=== PATIENT | male | born 1940 | race Hispanic/Latino ===

== ENCOUNTER 2020-09-29 00:49 | Emergency (ER) | payer MEDICARE ==
[~2020-09-29] VITALS: Ht 172.7 cm; Wt 86.2 kg
[2020-09-29] MEDS ORDERED: IBUPROFEN 600 MG TAB PO STA (00:52)
[2020-09-29] MEDS ORDERED: CEFTRIAXONE SOD 1 GM/NS 50 ML 50 ML IV ONE (01:00)
[2020-09-29 01:13] LABS: BASOPHILS % 0.2 % (0.0-1.0); HEMATOCRIT 34.4 % (38.2-49.6); LYMPHOCYTES # (AUTO) 0.8 (1.0-3.2); LYMPHOCYTES % 8.8 % (18.0-39.1); MEAN CORPUSCULAR HEMOGLOBIN 32.3 pg (28-32); MEAN CORPUSCULAR HGB CONC 34.9 g/dL (31-35); MEAN CORPUSCULAR VOLUME 92.7 fL (81-99); MONOCYTES # (AUTO) 0.3 (0.2-0.8); MONOCYTES % 3.7 % (4.4-11.3); NEUTROPHILS # (AUTO) 7.4 (2.1-6.9); NEUTROPHILS % 86.9 % (38.7-80.0); PLATELET COUNT 164 x10e3/uL (140-360); RED BLOOD COUNT 3.71 x10e6/uL (4.3-5.7); RED CELL DISTRIBUTION WIDTH 12.7 % (11.7-14.4)
--- NOTE | 2020-09-29 01:15 | Emergency Department Note ---
History of Present Illnes History of Present Illness Chief Complaint: COVID PUI History of Present Illness This is a 79 year old male c/o fever, chills and body aches that have gradually been getting worse over the last 4 days; Pt states that tested positive for covid on 09/16/20; O2 sat 97% on RA . Historian: Patient Arrival Mode: [employer] Required: No Onset (how long ago): day(s) (4) Location: all over Quality: fever, chills,body aches, cough Radiation: Reports non-radiation Severity: moderate Onset quality: sudden Duration (how long): day(s) (4) Timing of current episode: intermittent Progression: waxing and waning Chronicity: new Context: Reports recent illness (tested positive for covid 19 on 09/16/20) Relieving factors: none Exacerbating factors: none Associated symptoms: Reports cough, Reports fever/chills Past Medical/Family History Physician Review I have reviewed the patient's past medical and family history. Any updates have been documented here. Past Medical History Recent Fever: Yes Clinical Suspicion of Infectio: Yes New/Unexplained Change in Ment: No Past Medical History: Hypertension, Hypothyroidism Other Medical History: high cholesterol Past Surgical History: Knee Replacement, Back Surgery Other Surgery: tka x2 Social History Smoking Cessation: Former smoker Counseling Performed: No Alcohol Use: Occasional Any Illegal Drug Use: No Physically hurt or threatened: No Family History Family history of heart diseas: No Other family history htn Other Any Pre-Existing Lines (PICC,: No Review of Systems Review of Systems Constitutional: Reports as per HPI EENTM: Reports no symptoms Cardiovascular: Reports no symptoms Respiratory: Reports as per HPI Gastrointestinal: Reports no symptoms Genitourinary: Reports no symptoms Musculoskeletal: Reports no symptoms Integumentary: Reports no symptoms Neurological: Reports no symptoms Psychological: Reports no symptoms Endocrine: Reports no symptoms Hematological/Lymphatic: Reports no symptoms Physical Exam Related Data Allergies: Coded Allergies: No Known Drug Allergies (Verified Allergy, Unknown, 09/29/20) Triage Vital Signs Vital Signs Date Time Temp Pulse Resp B/P (MAP) Pulse Ox O2 Delivery O2 Flow Rate FiO2 09/29/20 00:59 101.5 100 20 117/63 97 Room Air Vital signs reviewed: Yes Physical Exam CONSTITUTIONAL Constitutional: Present well-developed, Present well-nourished HENT HENT: Present normocephalic, Present atraumatic, Present oropharynx clear/moist, Present nose normal HENT L/R: Present left ext ear normal, Present right ext ear normal EYES Eyes: Reports PERRL, Reports conjunctivae normal NECK Neck: Present ROM normal PULMONARY Pulmonary: Present effort normal, Present breath sounds normal CARDIOVASCULAR Cardiovascular: Present regular rhythm, Present heart sounds normal, Present capillary refill normal, Present tachycardia (102) GASTROINTESTINAL Abdominal: Present soft, Present nontender, Present bowel sounds normal GENITOURINARY Genitourinary: Present exam deferred SKIN Skin: Present warm, Present dry MUSCULOSKELETAL Musculoskeletal: Present ROM normal NEUROLOGICAL Neurological: Present alert, Present oriented x 3, Present no gross motor or se nsory deficits PSYCHOLOGICAL Psychological: Present mood/affect normal, Present judgement normal Results Laboratory Laboratory Laboratory Tests Test 09/29/20 01:56 09/29/20 00:55 Urine Color Yellow (YELLOW) Urine Clarity Clear (CLEAR) Urine pH 5 (5 - 7) Urine Specific [place] 1.025 (1.010-1.025) Urine Protein 2+ (NEGATIVE) Urine Glucose (UA) Negative (NEGATIVE) Urine Ketones Trace (NEGATIVE) Urine Blood Negative (NEGATIVE) Urine Nitrite Negative (NEGATIVE) Urine Bilirubin Negative (NEGATIVE) Urine Urobilinogen 0.2 mg/dL (0.2 - 1) Urine Leukocyte Esterase Negative (NEGATIVE) Urine RBC 0-5 /HPF (0-5) Urine WBC 0-5 /HPF (0-5) Urine Epithelial Cells Rare /LPF (NONE) Urine Amorphous Sediment Few (FEW) Urine Bacteria Few /HPF (NONE) White Blood Count 8.54 x10e3/uL (4.8-10.8) Red Blood Count 3.71 x10e6/uL (4.3-5.7) Hemoglobin 12.0 g/dL (14.0-18.0) Hematocrit 34.4 % (38.2-49.6) Mean Corpuscular Volume 92.7 fL (81-99) Mean Corpuscular Hemoglobin 32.3 pg (28-32) Mean Corpuscular Hemoglobin Concent 34.9 g/dL (31-35) Red Cell Distribution Width 12.7 % (11.7-14.4) Platelet Count 164 x10e3/uL (140-360) Neutrophils (%) (Auto) 86.9 % (38.7-80.0) Lymphocytes (%) (Auto) 8.8 % (18.0-39.1) Monocytes (%) (Auto) 3.7 % (4.4-11.3) Eosinophils (%) (Auto) 0.0 % (0.0-6.0) Basophils (%) (Auto) 0.2 % (0.0-1.0) Neutrophils # (Auto) 7.4 (2.1-6.9) Lymphocytes # (Auto) 0.8 (1.0-3.2) Monocytes # (Auto) 0.3 (0.2-0.8) Eosinophils # (Auto) 0.0 (0.0-0.4) Basophils # (Auto) 0.0 (0.0-0.1) Absolute Immature Granulocyte (auto 0.03 x10e3/uL (0-0.1) Sodium Level 138 mmol/L (136-145) Potassium Level 3.4 mmol/L (3.5-5.1) Chloride Level 107 mmol/L (98-107) Carbon Dioxide Level 19 mmol/L (22-29) Anion Gap 15.4 mmol/L (8-16) Blood Urea Nitrogen 25 mg/dL (7-26) Creatinine 1.58 mg/dL (0.72-1.25) Estimat Glomerular Filtration Rate 43 ML/MIN (60-) BUN/Creatinine Ratio 16 (6-25) Glucose Level 165 mg/dL (74-118) Lactic Acid Level 1.4 mmol/L (0.5-2.0) Calcium Level 8.9 mg/dL (8.4-10.2) Total Bilirubin 1.0 mg/dL (0.2-1.2) Aspartate Amino Transf (AST/SGOT) 46 IU/L (5-34) Alanine Aminotransferase (ALT/SGPT) 46 IU/L (0-55) Alkaline Phosphatase 109 IU/L (40-150) Total Protein 7.2 g/dL (6.5-8.1) Albumin 3.2 g/dL (3.5-5.0) Globulin 4.0 g/dL (2.3-3.5) Albumin/Globulin Ratio 0.8 (0.8-2.0) Influenza Virus Types A,B Antigen Negative (NEGATIVE) Lab results reviewed: Yes Imaging Imaging results reviewed: Yes Impressions EXAMINATION: CHEST SINGLE (PORTABLE) INDICATION: ^Y ^fever, cough, covid + ^[id number] ^0115 ^Y COMPARISON: None FINDINGS: TUBES and LINES: None. LUNGS: Normal lung volumes. Multifocal patchy hazy opacities. PLEURA: No pleural effusion or pneumothorax. HEART AND MEDIASTINUM: The cardiomediastinal silhouette is unremarkable. BONES AND SOFT TISSUES: No acute osseous lesion. Soft tissues are unremarkable. UPPER ABDOMEN: No free air under the diaphragm. IMPRESSION: Multifocal pneumonia. Signed by: Conrad Neves DO on 09/29/2020 1:42 AM Dictated By: CONRAD NEVES DO 1 Transcribed By: ROBBY on 09/29/20141 COPY TO: XANDER MONROY MD~ Assessment & Plan Medical Decision Making MDM pt with covid with fever, cough cbc,cmp, cxr,lactic acid, blood culture, ua, urine culture, rapid flu ordered to eval for sepsis, pneumonia, influenza, uti, leukocytosis, electrolyte abnormality, rocephin 1 gram iv ordered motrin 600 mg po ordered Reassessment Reassessment time: 02:55 Reassessment PT TEMP NOW 98.9 OXYGEN SATURATION 95% ON ROOM AIR, RR22 OFFERED TO ADMIT/TRANSFER PT TO BE WATCHED IN HOSPITAL FOR 1 TO 2 DAYS BUT PT STATES HE FEELS BETTER AND WANTS TO GO HOME Assessment & Plan Final Impression: (1) Fever (2) Viral pneumonia (3) COVID-19 Depart Disposition: HOME, SELF-CARE Last Vital Signs Date Time Temp Pulse Resp B/P (MAP) Pulse Ox O2 Delivery O2 Flow Rate FiO2 09/29/20 00:59 101.5 100 20 117/63 97 Room Air Medications in the ED Ceftriaxone Sodium 50 ml @ 100 mls/hr ONCE ONCE IV Last administered on 09/29/20at 01:07; Admin Dose 100 MLS/HR; Start 09/29/20 at 01:00; Stop 09/29/20 at 01:29 Ibuprofen 600 mg ONCE STAT PO Last administered on 09/29/20at 01:07; Admin Dose 600 MG; Start 09/29/20 at 00:52; Stop 09/29/20 at 01:01; Status DC XANDER MONROY MD Sep 29, 2020 01:15
[2020-09-29 01:31] LABS: ALBUMIN 3.2 g/dL (3.5-5.0); ALBUMIN/GLOBULIN RATIO 0.8 (0.8-2.0); ANION GAP 15.4 mmol/L (8-16); CALCIUM 8.9 mg/dL (8.4-10.2); CREATININE, SERUM 1.58 mg/dL (0.72-1.25); POTASSIUM 3.4 mmol/L (3.5-5.1)
--- NOTE | 2020-09-29 01:45 | Diagnostic Imaging Report ---
EXAMINATION: CHEST SINGLE (PORTABLE) INDICATION: ^Y ^fever, cough, covid + ^[id number] ^0115 ^Y COMPARISON: None FINDINGS: TUBES and LINES: None. LUNGS: Normal lung volumes. Multifocal patchy hazy opacities. PLEURA: No pleural effusion or pneumothorax. HEART AND MEDIASTINUM: The cardiomediastinal silhouette is unremarkable. BONES AND SOFT TISSUES: No acute osseous lesion. Soft tissues are unremarkable. UPPER ABDOMEN: No free air under the diaphragm. IMPRESSION: Multifocal pneumonia. Signed by: Peter Neves DO on 09/29/2020 1:42 AM
[2020-09-29 02:06] LABS: BILIRUBIN,URINE NEGATIVE (NEGATIVE); CLARITY,URINE CLEAR (CLEAR); COLOR,URINE YELLOW (YELLOW); KETONES,URINE TRACE (NEGATIVE); LEUKOCYTE ESTERASE ,URINE NEGATIVE (NEGATIVE); NITRITE,URINE NEGATIVE (NEGATIVE); PROTEIN,URINE DIPSTICK 2+ (NEGATIVE); URINE UROBILINOGEN 0.2 mg/dL (0.2 - 1)
[2020-09-29 02:12] LABS: AMORPHOUS SEDIMENT,URINE FEW (FEW); BACTERIA,URINE FEW /HPF; EPITHELIAL CELLS,URINE RARE /LPF; RBC,URINE 0-5 /HPF (0-5); WBC,URINE (MAN) 0-5 /HPF (0-5)
--- OUTSIDE RECORDS SUMMARY | 2020-09-29 02:14 | XMS REPORT | Continuity of Care Document ---
Author Author [facility] Organization [facility] Address [address] [place] [id number] Phone Unavailable Care Team Providers Care Md Do Resident Urgent Care Name Role Phone Ev MONROY Attphys Unavailable Problems This patient has no known problems. Allergies, Adverse Reactions, Alerts This patient has no known allergies or adverse reactions. Medications This patient has no known medications. Procedures This patient has no known procedures. Results Test Description Test Time Test Comments Results Result Comments Source CHEST SINGLE (PORTABLE) 2020-09-29 01:41:00 [facility] CENTERName[facility]K ANDRE : 1940 Sex: M [place] [id number] Patient Name: ARIK ANDRE MR #: [id number] : 1940 Age/Sex: 79/M Req #: [id number] [facility] Physician: Ordered by: XANDER MONROY MD Report #: [id number] Location: ER Room/Bed: Procedure: [id number] DX/CHEST SINGLE (PORTABLE) Exam Date: 09/29/20 Exam Time: 114 REPORT STATUS: Signed EXAMINATION: CHEST SINGLE (PORTABLE) INDICATION: Y fever, cough, covid + [id number] 0115 Y COMPARISON: None FINDINGS: TUBES and LINES: None. LUNGS: Normal lung volumes. Multifocal patchy hazy opacities. PLEURA: No pleural effusion or pneumothorax. HEART AND MEDIASTINUM: The cardiomediastinal silhouette is unremarkable. BONES AND SOFT TISSUES: No acute osseous lesion. Soft tissues are unremarkable. UPPER ABDOMEN: No free air under the diaphragm. IMPRESSION: Multifocal pneumonia. Signed by: Peter Neves DO on 09/29/2020 1:42 AM Dictated By: PETER NEVES DO 1 Transcribed By: ROBBY on 09/29/20141 COPY TO: XANDER MONROY MD
[2020-09-29 02:56] VITALS: BP 95/54
== END 2020-09-29 03:25 | disposition home or self-care (01) ==
LOC: ER 02:12
DX: U07.1 COVID-19 (principal); J12.9 Viral pneumonia, unspecified; R50.9 Fever, unspecified
CPT/HCPCS: 36415; 71045; 80053; 81001; 83605; 85025; 87040; 87071; 87086; 87205; 87400; 99284; J0696

== ENCOUNTER 2021-01-31 12:40 | Emergency (ER) | payer MEDICARE ==
[~2021-01-31] VITALS: Ht 172.7 cm; Wt 86.2 kg
[2021-01-31] MEDS ORDERED: KETOROLAC TROMETHAMINE 30 MG/ML VIAL IM NR (13:21)
[2021-01-31] MEDS ORDERED: DEXAMETHASONE 4 MG TAB PO NR (13:21)
[2021-01-31 14:24] LABS: CLARITY,URINE CLEAR (CLEAR); COLOR,URINE YELLOW (YELLOW); KETONES,URINE NEGATIVE (NEGATIVE); LEUKOCYTE ESTERASE ,URINE NEGATIVE (NEGATIVE); NITRITE,URINE NEGATIVE (NEGATIVE); PROTEIN,URINE DIPSTICK TRACE (NEGATIVE)
[2021-01-31 14:38] LABS: BACTERIA,URINE RARE /HPF; RBC,URINE 0-5 /HPF (0-5); WBC,URINE (MAN) 0-5 /HPF (0-5)
[2021-01-31] MEDS ORDERED: LIDOPATCH1 EACH TOP (14:55)
[2021-02-01] MEDS ORDERED: LIDOCAINE 4% PATCH TP SCH (09:00)
== END 2021-01-31 17:00 | disposition home or self-care (01) ==
LOC: ER 13:21
DX: M54.5 Low back pain (principal); I10 Essential (primary) hypertension; E03.9 Hypothyroidism, unspecified; E78.00 Pure hypercholesterolemia, unspecified
CPT/HCPCS: 74176; 81001; 93005; 99283

== ENCOUNTER 2021-12-26 17:02 | Emergency (ER) | payer OTHER ==
[~2021-12-26] VITALS: Ht 172.7 cm; Wt 89.8 kg
[~2021-12-26 17:02] MED LIST: LIDOPATCH1 EACH TOP
[2021-12-26] MEDS ORDERED: SODIUM CHLORIDE 0.9% 1000ML 500 ML IV STA (17:32)
[2021-12-26] MEDS ORDERED: ONDANSETRON HCL INJ 2MG/ML 2ML 2 MG/ML VIAL IV STA (17:32)
[2021-12-26] MEDS ORDERED: Morphine 2mg Syringe 2 MG/ML SYR IV STA (17:32)
[2021-12-26 17:49] LABS: BASOPHILS # (AUTO) 0.1 (0.0-0.1); BASOPHILS % 1.1 % (0.0-1.0); EOSINOPHILS # (AUTO) 0.1 (0.0-0.4); EOSINOPHILS % 1.3 % (0.0-6.0); HEMATOCRIT 37.2 % (38.2-49.6); HEMOGLOBIN 12.9 g/dL (14.0-18.0); LYMPHOCYTES # (AUTO) 1.8 (1.0-3.2); LYMPHOCYTES % 22.4 % (18.0-39.1); MEAN CORPUSCULAR HEMOGLOBIN 32.5 pg (28-32); MEAN CORPUSCULAR HGB CONC 34.7 g/dL (31-35); MEAN CORPUSCULAR VOLUME 93.7 fL (81-99); MONOCYTES # (AUTO) 0.5 (0.2-0.8); MONOCYTES % 5.8 % (4.4-11.3); NEUTROPHILS # (AUTO) 5.5 (2.1-6.9); NEUTROPHILS % 69.1 % (38.7-80.0); PLATELET COUNT 249 x10e3/uL (140-360); RED BLOOD COUNT 3.97 x10e6/uL (4.3-5.7); RED CELL DISTRIBUTION WIDTH 13.4 % (11.7-14.4)
[2021-12-26 17:58] LABS: INR 0.93; PROTHROMBIN TIME 13.3 seconds (11.9-14.5)
[2021-12-26 18:00] LABS: PARTIAL THROMBOPLASTIN TIME 29.6 seconds (23.8-35.5)
[2021-12-26 18:08] LABS: ALBUMIN 3.9 g/dL (3.5-5.0); ALBUMIN/GLOBULIN RATIO 1.1 (0.8-2.0); ANION GAP 11.9 mmol/L (8-16); CALCIUM 9.2 mg/dL (8.4-10.2); CREATININE, SERUM 1.19 mg/dL (0.72-1.25); POTASSIUM 3.9 mmol/L (3.5-5.1)
[2021-12-26 18:16] LABS: CREATINE KINASE MB 3.1 ng/mL (0-5.0)
[2021-12-26] MEDS ORDERED: SODIUM CHLORIDE 0.9% 50ML 50 ML ONE (18:28)
[2021-12-26] MEDS ORDERED: IOPAMIDOL 370 MG/ML 200 ML INFUS..BTL INJ ONE (18:28)
[2021-12-26] MEDS ORDERED: ULTRAM 50MG50 MG PO (20:05)
[2021-12-26] MEDS ORDERED: TRAMADOL/APAP 37.5MG-325MG TAB PO PRN (20:15)
== END 2021-12-26 20:59 | disposition home or self-care (01) ==
LOC: ER 17:16
DX: S00.83XA Contusion of other part of head, initial encounter (principal); S16.1XXA Strain of muscle, fascia and tendon at neck level, initial encounter; R07.89 Other chest pain; V43.62XA Car passenger injured in collision with other type car in traffic accident, initial encounter; Y92.488 Other paved roadways as the place of occurrence of the external cause; I10 Essential (primary) hypertension; E78.5 Hyperlipidemia, unspecified; E03.9 Hypothyroidism, unspecified; H54.7 Unspecified visual loss; R94.31 Abnormal electrocardiogram [ECG] [EKG]
CPT/HCPCS: 36415; 70450; 71260; 72125; 74177; 80053; 82550; 82553; 83880; 84484; 85025; 85610; 85730; 93005; 99284; J2270; J2405; J7030; Q9967